=== PATIENT | male | born 1980 | race African-American/Black ===

== ENCOUNTER 2022-01-18 14:26 | Emergency (ER) | payer OTHER ==
[2022-01-18 15:21] LABS: BASOPHIL 0.6 % (0-2); EOSINOPHIL 2.6 % (0-5); HCT 38.4 % (42.0-52.0); HGB 14.1 g/dl (13.2-18.0); LYMPHOCYTE 28.8 % (15-48); MCH 25.9 pg (25.0-31.0); MCHC 36.7 g/dL (32.0-36.0); MCV 70.5 fL (78.0-100.0); MONOCYTE 6.9 % (0-12); NEUTROPHIL 60.7 % (41-80); NRBC 1.2; PLT 120 K/uL (150-400); RBC 5.45 M/uL (4.70-6.00); RDW 16.9 % (11.5-14.0)
[2022-01-18 15:55] LABS: BUN/CREAT RATIO (CALC) 12.8 RATIO; CREATININE 1.09 mg/dL (0.67-1.17)
== END 2022-01-18 16:22 | disposition home or self-care (01) ==
LOC: FER 14:26
PROVIDERS: Nurse Practitioner Family
DX: J98.01 Acute bronchospasm (principal)
CPT/HCPCS: 36415; 71046; 80048; 85025